=== PATIENT | female | born 1975 | race Two or more races ===

== ENCOUNTER 2024-08-25 11:36 | Emergency (ER) | payer MEDICAID, SELFPAY ==
[2024-08-25 11:41] VITALS: BP 129/81; PULSE 93; RESP 18; TEMP 36.8; O2SAT 98; BMI 27.4
--- NOTE | 2024-08-25 11:42 | ED_ITS ---
HPI - General Adult General Chief complaint: Wound/Laceration Stated complaint: abscess Time Seen by Provider: 08/25/24 13:10 Source: patient Mode of arrival: ambulatory Limitations: language barrier (Anguillan-speaking vaccines solutions specialist utilized) History of Present Illness ED Provider: Adelia Vieyra NP HPI narrative: Patient is a 49-year-old female who presents emergency department for evalua tion. She reports over the past week she has developed an increasingly yet painful and enlarging abscess to the left groin. She has had a history of similar in the past after shaving with ingrown hairs. She has previously required incision and drainage. she denies any fevers or chills. Denies genitourinary symptoms. No pelvic pain. Denies concern for sexually transmitted infections. Not a diabetic. No additional skin rashes or lesions Related Data Previous Rx's ?Medication ?Instructions ?Recorded cephalexin 500 mg capsule 500 mg PO QID #28 caps 08/25/24 doxycycline hyclate 100 mg capsule 100 mg PO BID #14 caps 08/25/24 Allergies Allergy/AdvReac Type Severity Reaction Status Date / Time Penicillins [PCN] Allergy Swelling Verified 08/25/24 11:43 Review of Systems Review of Systems: Yes all other systems are reviewed and are negative [facility] Past Medical History Attestation statement: The following information was validated with the patient. Source: old records reviewed Social History Social History Advance Directives: No Advance Directives Information Provided: Yes Do you have a plan to hurt others: No Plan Physical Exam ED Vital Signs: Vital Signs - 24 hr 08/25/24 11:41 08/25/24 13:06 Temperature 98.2 F 97.4 F Pulse Rate 93 79 Respiratory Rate 18 20 Blood Pressure 129/81 135/82 Pulse Oximetry 98 97 Oxygen Delivery Method Room Air Room Air BMI result Body Mass Index 27.4 Appearance: Alert.?Oriented to person, place and time. No acute distr ess.?Normal affect. Eyes: Pupils equal, round and reactive to light.? ENT: Pharynx normal.?? Neck: Normal inspection.? Neck supple.?? CVS: Heart sounds normal. Normal heart rate and rhythm.? Pulses normal.?? Respiratory: No respiratory distress.? Lung sounds clear to auscultation bilaterally?? Abdomen: Soft and non-tender. Normoactive bowel sounds. Skin: Skin warm and dry.? Normal skin color.? Visualized with men's designer ED nursing staff. Left groin with 5 cm X 3 cm area of erythema, induration along the borders, with central fluctuance concerning for abscess ? Extremities: No lower extremity edema.? Neuro: Moves all extremities spontaneously. Sensation intact bilaterally. Ambulates with normal steady gait. Course Course Course Narrative: This is a rapid medical exam performed by Rajan Chen NP: Additional HPI, ROS, PE not included below will be deferred to primary provider. 08/25/24 11:43 Leticia ent is a 49-year-old Anguillan speaking female presenting with complaint of abscess to left groin area x 1 week. Denies discharge/drainage, fevers. History of abscesses requiring I&D in the past. Area not visualized in triage due to privacy concerns. Medications Administered Discontinued Medications Generic Name Dose Route Start Last Admin Trade Name Freq PRN Reason Stop Dose Admin Lidocaine HCl 10 ml 08/25/24 13:38 08/25/24 13:42 Lidocaine Hcl 1 % Mpf 5 Ml Vial SUBCUT 08/25/24 13:39 10 ml ONCE ONE Administration Procedures Abscess I/D Site: other (GROIN) Side (if applicable): left Local Anesthetic: lidocaine 1% Amount of anesthesia used (mL): 7 Technique: needle aspiration and incised with blade Irrigation: Yes Packing used?: none Medical Decision Making Medical Decision Making MDM Narrative: Patient is a 49-year-old female who presents emergency department for evaluation of an abscess to the left groin. On examination there is mild surrounding cellulitis for which she will be treated with a course of antibiotics in addition to the incision and drainage as per procedural portion of this note. No systemic toxicity, and patient is well-appearing. Not consistent with necrotizing fasciitis, myositis, DVT, osteomyelitis. patient is now status post incision and drainage of abscess and tolerated the procedure well. No complications. No labs or imaging indicated at this time. Will discharge home with course of oral antibiotics and symptomatic treatment instructions. Discussed reasons to return to the emergency department, and follow-up with primary care provider. Patient agreeable with plan of care. Differential Diagnosis Differential Diagnoses: The differential diagnosis associated with the presentation includes (See narrative above) Independent Historian Clinical information obtained from an independent historian. History obtained from or confirmed by: Spouse External Record Review External record reviewed: Outpatient record Prescription Management I considered prescription management with: Pain Medication and Antibiotic Discharge Plan Discharge Clinical Impression: Abscess Patient Disposition: Home, Self-Care Instructions: Abscess (ED), Abscess Incision and Drainage (DC) Additional Instructions: Apply warm moist compresses to the area, it is beneficial if you can computer technology trainer a warm shower and let the water run over this area 3 times daily you may gently massage the area to express any additional drainage that may come out. As discussed, where an undergarment that does not allow friction in this area. If you are going to continue shaving or cutting the hair in this region, you certain that you were using a new razor each time, and consider using a moisturizing shave gel or an oil afterwards to prevent irritation to the follicles. I have sent prescription for antibiotic to your pharmacy, please complete the entire course as prescribed do not skip any doses or stop taking early even if you begin to feel better. You can take ibuprofen 200 mg, 3 tablets (600mg) every 6-8 hours as needed for pain, in addition to Tylenol 500 mg, 2 tablets (1,000mg) every 4-6 hours as needed for pain, but not to exceed 3 doses daily (3,000mg).? Prescriptions: New cephalexin 500 mg capsule 500 mg PO QID Qty: 28 0RF doxycycline hyclate 100 mg capsule 100 mg PO BID Qty: 14 0RF Referrals: Physician,Nonstaff [Primary Care Provider] - Print Language: Anguillan
[2024-08-25 13:06] VITALS: BP 135/82; PULSE 79; RESP 20; TEMP 36.3; O2SAT 97
--- OUTSIDE RECORDS SUMMARY | 2024-08-25 13:24 | XMS_ITS | Clinical Summary ---
Author Organization [facility] Address [address] [place] [address] Care Team Providers Care Forklift Material Handler Name Role Phone Sunil Wood MD Primary Care Provider [phone] Zeb Mazariegos MD Unavailable [phone] Mikael Dunham CMA Unavailable Unava [place] Unavailable Unavailabl e Allergies Active Allergy Reactions Criticality Noted Date Comments Penicillin G Anaphylaxis High 06/15/2022 Penicillins Rash Low 05/10/2022 Medications Medication Sig Dispensed Refills Start Date End Date Status SUMAtriptan (Imitrex) 25 MG tabletIndications: Migraine without aura and without status migrainosus, not intractable Take 1 tablet (25 mg total) by mouth 1 (one) time if needed for migraine. May repeat dose once in 2 hours if no relief. Do not exceed 2 doses in 24 hours. 9 tablet 2 3 Active hydrOXYzine pamoate (Vistaril) 50 MG capsuleIndications :Insomnia, unspecified type Take 1 capsule (50 mg total) by mouth at night if needed (sleep). 30 capsule 2 4 Active escitalopram (Lexapro) 20 MG tabletIndications: Anxiety and depression Take 1 tablet (20 mg total) by mouth 1 (one) time each day. 30 tablet 5 4 Active budesonide-formote rol (Symbicort) 160-4.5 MCG/ACT inhalerIndications :Mild persistent asthma with exacerbation Inhale 2 puffs in the morning and 2 puffs in the evening. Rinse mouth with water after use to reduce aftertaste and incidence of candidiasis. Do not swallow.. 1 g 11 4 Active Blood Glucose Monitoring Suppl deviceIndications: Prediabetes 3 (three) times a day. Monitor blood sugar 1-3 times a day 1 each 4 Active Blood Glucose Monitoring Suppl kitIndications:Pre diabetes 3 (three) times a day. Monitor blood sugar 1-3 times a day 100 each 11 4 Active gabapentin (Neurontin) 300 MG capsuleIndications :Bilateral carpal tunnel syndrome Take 1 capsule (300 mg total) by mouth in the morning and 1 capsule (300 mg total) at noon and 1 capsule (300 mg total) before bedtime. 90 capsule 2 4 Active mirtazapine (Remeron Roxana-Tab) 15 MG disintegrating tabletIndications: Poor appetite,Fatigue, unspecified type PLACE 1 TABLET (15 MG TOTAL) UNDER THE TONGUE EVERY NIGHT. 90 tablet 1 4 Active ergocalciferol (Vitamin D2) 1.25 MG (51398 UT) capsuleIndications :Vitamin D deficiency Take 1 capsule (50,000 Units total) by mouth 1 (one) time per week. 12 capsule 4 Active fluticasone (Flonase) 50 MCG/ACT nasal sprayIndications:P ostnasal drip,Acute cough Administer 1 spray into each nostril 1 (one) time each day. Shake gently. Before first use, prime pump. After use, clean tip and replace cap. 16 g 12 4 11/24/19 25 Active benzonatate (Tessalon) 200 MG capsuleIndications :Postnasal drip,Acute cough Take 1 capsule (200 mg total) by mouth 3 (three) times a day if needed for cough. Do not crush or chew. 30 capsule 1 4 Active Additional Information Patient not taking.Reported on 05/03/2024 methylPREDNISolone (Medrol Dosepak) 4 MG tablets Follow schedule on package instructions 21 tablet 4 Active Additional Information Patient not taking.Reported on 05/03/2024 albuterol (Ventolin HFA) 108 (90 Base) MCG/ACT inhalerIndications :Asthma, unspecified asthma severity, unspecified whether complicated, unspecified whether persistent INHALE 2 PUFFS EVERY 6 HOURS IF NEEDED FOR WHEEZING. 18 g 5 4 Active atorvastatin (Lipitor) 80 MG tabletIndications: Hyperlipidemia, unspecified hyperlipidemia type Take 1 tablet (80 mg total) by mouth every night. 90 tablet 3 4 05/03/20 25 Active Nebulizer System All-In-One miscIndications:Mi ld intermittent asthma with acute exacerbation Use with nebulizer solution 1 each 5 Active pantoprazole (Protonix) 40 MG EC tabletIndications: Epigastric pain TAKE 1 TABLET BY MOUTH EVERY DAY BEFORE BREAKFAST DO NOT CRUSH CHEW OR SPLIT 90 tablet 1 5 Active ipratropium-albute rol (Duo-Neb) 0.5-2.5 mg/3 mL nebulizer solutionIndication s:Mild intermittent asthma with acute exacerbation TAKE 3 ML BY NEBULIZATION EVERY 6 HOURS 360 mL 5 Active ipratropium-albute rol (Duo-Neb) 0.5-2.5 mg/3 mL nebulizer solutionIndication s:Mild intermittent asthma with acute exacerbation Take 3 mL by nebulization every 6 (six) hours. 360 mL 5 08/18/19 25 Discontinued Active Problems Problem Noted Date Diagnosed Date BMI 27.0-27.9,adult 03/12/2024 Intermittent palpitations 03/12/2024 Acute chest pain 08/17/2023 Chest pain 08/17/2023 Menorrhagia with regular cycle 08/22/2022 Depression 06/06/2022 Anxiety 06/06/2022 Acute posthemorrhagic anemia 06/06/2022 Duodenitis with bleeding 06/06/2022 care home (current) use of inhaled steroids 05/16 Other fpc (current) drug therapy 3 Asthma 06/06/2022 Gastritis, unspecified, with bleeding 06/06/2022 Urinary tract infection, site not specified 05/16 Perimenopausal 06/06/2022 Varicose veins of left lower extremity 3 Dyslipidemia 06/06/2022 Prediabetes 06/06/2022 Shortness of breath 03/20/2022 Unspecified asthma with (acute) exacerbation 10/2021 Cannabis use, unspecified, uncomplicated 022 Dyspnea, unspecified 01/06/2022 Acute pharyngitis, unspecified 12/07/2021 Epigastric pain 04/13/2021 Hematemesis 04/13/2021 Encounters Date Type Department Care Team Description 08/17/2024 Refill [facility] at [address] [place] [address] Sunil Wood MD Mild intermittent asthma with acute exacerbation 06/26/2024 Abstract [facility] at [address] [place] [address] Sunil Wood MD 06/25/2024 Abstract [facility] at [address] [place] [address] Sunil Wood MD 06/06/2024 Refill [facility] at [address] [place] [address] Sunil Wood MD Epigastric pain 05/31/2024 7:24 PM EST - 05/31/2024 8:20 PM EST Emergency [facility] [place] [address] [place] [address] Magnus Toscano MD Bilateral carpal tunnel syndrome (Primary Dx) Discharge Disposition: Home or Self Care 05/31/2024 Travel 05/27/2024 Telephone [facility] at [address] [place] [address] Shannon Brizuela CMA from Last 3 Months Immunizations Name Administration Dates Next Due Influenza, Mdck, Trivalent, Pf 03/11/2024 Influenza, injectable, MDCK, preservative free, quadrivalent 05/03/2023 Family History Medical History Relation Name Comments Lung cancer Mother uterus ca Mother's Sister Relation Name Status Comments Mother Mother's Sister Alive Social History Tobacco Use Types Packs/Day Years Used Date Smoking Tobacco: Every Day Cigarettes 0.3 33.3 Started: 1991 Passive Smoke Exposure: Never Smokeless Tobacco: Never Tobacco Cessation:Ready to Q uit: Not Asked; Counseling Given: Not Answered Alcohol Use Standard Drinks/Week Comments Never 0 (1 standard drink = 0.6 oz pur e alcohol) AUDIT-C Answer Date Recorded Q1: How often do you have a drink containing alc ohol? 2-4 times a month 02/03/2023 Q2: How many drinks containi ng alcohol do you have on a typical day when you are drinking? 1 or 2 02/03/2023 Q3: How often do you have si x or more drinks on one occasion? Never 02/03/2023 PHQ-2 Answer Date Recorded Patient Health Questionnaire-2 Score 0 11/24/2023 [facility] Housing Answer Date Recorded Living Situation Not on file 12/28/2022 Housing Problems Not on file 12/28/2022 [facility] Safety Answer Date Recorded How often does anyone, jeovany santos family and friends, threaten you with harm? 1 08/17/2023 How often does anyone, jeovany santos family and friends, insult or talk down to you? 1 08/17/2023 How often does anyone, jeovany santos family and friends, physically hurt you? 1 08/17/2023 How often does anyone, jeovany santos family and friends, scream or curse at you? 1 08/17/2023 Sex and Gender Information Value Date Recorded Sex Assigned at Not on file Gender Identity Not on file Sexual Orientation Not on file Last Filed Vital Signs Vital Sign Reading Time Taken Comments Blood Pressure 114/84 05/31/2024 7:38 PM EST Pulse 82 05/31/2024 7:38 PM EST Temperature 37 ??C (98.6 ??F) 05/31/2024 7:38 PM EST Respiratory Rate 16 05/31/2024 7:38 PM EST Oxygen Saturation 100% 05/31/2024 7:38 PM EST Inhaled Oxygen Concentration - - Weight 70 kg (154 lb 5.2 oz) 05/31/2024 7:38 PM EST Height 160 cm (5' 2.99 ) 05/31/2024 7:38 PM EST Body Mass Index 27.34 05/31/2024 7:38 PM EST Plan of Treatment Health Maintenance Due Date Last Done Comments CT Colonography 1975 Cologuard 1975 Colonoscopy 1975 Colorectal Cancer Screening 1975 FIT 1975 FOBT 1975 HIV Screening 1975 Sigmoidoscopy 1975 MMR Vaccines (1 of 1 - Standard series) 02/28/1976 Annual Physical 08/28/1977 COVID-19 Vaccine (#1) 02/28/1980 DTaP/Tdap/Td Vaccines (1 - Tdap) 1994 Hepatitis B Vaccines (1 of 3 - 19+ 3-dose series) 1994 Pneumococcal: Pediatrics (0 to 5 Yrs) and At-Risk Patients (6 to 49 Years) (1 of 2 - PCV) 1994 Zoster Vaccines (1 of 2) 1994 Mammogram 2015 Diabetes Screening 04/23/2025 04/23/2024, 1 06/24/2023, 03/07/2024, Additional history exists Diabetes: Hemoglobin A1C 04/23/2025 024, 11/13/2023, 09/11/2023, Additional history exists Pap Smear 08/22/2025 08/22/2022 Cervical Cancer Screening 08/23/2027 HPV/Cotest 08/23/2027 08/22/2022 Lipid Panel 04/23/2029 04/23/2024, 07/0 05/2023, 09/11/2023, Additional history exists Respiratory Syncytial Virus (RSV) 60 years and older and/or patients (1 - 1-dose 75+ series) 2050 Influenza Vaccine Completed 03/11/2024, 05/03/2023 HPV Vaccines Aged Out No longer eligi ble based on patient's age to complete this topic Hepatitis A Vaccines Aged Out No long er eligible based on patient's age to complete this topic Meningococcal B Vaccine Aged Out No l onger eligible based on patient's age to complete this topic Meningococcal Vaccine Aged Out No mike garett eligible based on patient's age to complete this topic Respiratory Syncytial Virus (RSV) <20 months Aged Out No longer eligible based on patient's age to complete this topic Procedures Procedure Name Priority Date/Time Associated Diagnosis Comments COMPREHENSIVE METABOLIC PANEL Routine 04/23/2024 8:39 AM EST HEMOGLOBIN A1C Routine 04/23/2024 8:39 AM EST LIPID PANEL Routine 04/23/2024 8:39 AM EST THINPREP TIS PAP, HPV MRNA E6/E7 RFX HPC 16,18/45, CT/NG Routine 08/22/2022 10:22 AM EDT Encounter for well woman exam with abnormal findings from Last 3 Months or Most Recently Relevant to Health Maintenance Results * (ABNORMAL) Hemoglobin A1C (04/23/2024 8:39 AM EST) Hemoglobin A1C 6.1(H) 4.8 - 5.6 % [facility] (RESULTS) ([facility]) Comment: ? Prediabetes: 5.7 - 6.4 ? Diabetes: >6.4 ? Glycemic control for adults with diabetes: <7.0 04/23/2024 8:39 AM EST 04/23/2024 Narrative [facility] - 04/26/2024 1:06 AM EST Performed at: ??01 - [facility] [address] ??[id number] Dog Control Officer: Harry Zuñiga MD, Phone: ??[phone] Sunil Wood MD LAB BLOOD ORDERABLES [facility] ([facility]) ([facility]) * (ABNORMAL) Lipid Panel (04/23/2024 8:39 AM EST) Cholesterol, Total 231(H) 100 - 199 mg/dL [facility] (RESULTS) ([facility]) Triglycerides 157(H) 0 - 149 mg/dL [facility] (RESULTS) ([facility]) HDL Cholesterol 53 >39 mg/dL [facility] (RESULTS) ([facility]) VLDL, Calculated 28 5 - 40 mg/dL [facility] (RESULTS) ([facility]) LDL Cholesterol, Calc 150(H) 0 - 99 mg/dL [facility] (RESULTS) ([facility]) 04/23/2024 8:39 AM EST 04/23/2024 Narrative [facility] - 04/26/2024 1:06 AM EST Performed at: ??01 - [facility] [address] ??[id number] Dog Control Officer: Harry Zuñiga MD, Phone: ??[phone] Sunil Wood MD LAB BLOOD ORDERABLES [facility] (RESULTS) ([facility]) * (ABNORMAL) Comprehensive Metabolic Panel (CMP) (04/23/2024 8:39 AM EST) Glucose 110(H) 70 - 99 mg/dL [facility] (RESULTS) ([facility]) BUN 11 6 - 24 mg/dL [facility] (RESULTS) ([facility]) Creatinine 0.71 0.57 - 1.00 mg/dL [facility] (RESULTS) ([facility]) eGFR 104 >59 mL/min/1.7 3 [facility] (RESULTS) ([facility]) BUN/Creatinine Ratio 15 9 - 23 [facility] (RESULTS) ([facility]) Sodium 140 134 - 144 mmol/L [facility] (RESULTS) ([facility]) Potassium 4.5 3.5 - 5.2 mmol/L [facility] (RESULTS) ([facility]) Chloride 105 96 - 106 mmol/L [facility] (RESULTS) ([facility]) Carbon Dioxide 23 20 - 29 mmol/L [facility] (RESULTS) ([facility]) Calcium 9.2 8.7 - 10.2 mg/dL [facility] (RESULTS) ([facility]) Protein, Total 7.1 6.0 - 8.5 g/dL [facility] (RESULTS) ([facility]) Albumin 4.1 3.9 - 4.9 g/dL [facility] (RESULTS) ([facility]) Globulin 3.0 1.5 - 4.5 g/dL [facility] (RESULTS) ([facility]) Bilirubin, Total 0.2 0.0 - 1.2 mg/dL [facility] (RESULTS) ([facility]) Alkaline Phosphatase 83 44 - 121 IU/L [facility] (RESULTS) ([facility]) AST 15 0 - 40 IU/L [facility] (RESULTS) ([facility]) ALT 10 0 - 32 IU/L [facility] (RESULTS) ([facility]) 04/23/2024 8:39 AM EST 04/23/2024 Narrative [facility] - 04/26/2024 1:06 AM EST Performed at: ??01 - [facility] [address] ??[id number] Dog Control Officer: Harry Zuñiga MD, Phone: ??[phone] Sunil Wood MD LAB BLOOD ORDERABLES [facility] (RESULTS) ([facility]) * ThinPrep TIS PAP, HPB mRNA E6/E7 rfx HPV 16,18/45, CT/NG (08/22/2022 10:22 AM EDT) Clinical Information [facility] Comment:None given LMP [facility] Comment:None given Previous PAP [facility] Comment:None given Previous Biopsy [facility] Comment:None given Source [facility] Comment:Vagina, Cervix, Endo cervix Statement of Adequacy [facility] Comment: Satisfactory for evaluation. Endocervical/transformation zone component present. Age and/or menstrual status not provided Interpretation/Resu lt: [facility] Comment:Negative for intraep ithelial lesion or malignancy. Comment: [facility] Comment: This Pap test has been evaluated with computer assisted technology. Vessel Manager [facility] Comment: DULCE RENTERIA(ASCP) CT screening location: [place] [address] Comment [facility] Comment: EXPLANATORY NOTE: The Pap is a screening test for cervical cancer. It is not a diagnostic test and is subject to false negative and false positive results. It is most reliable when a satisfactory sample, regularly obtained, is submitted with relevant clinical findings and history, and when the Pap result is evaluated along with historic and current clinical information. HPV mRNA E6/E7 Not Detected Not Detected [facility] Comment: Methodology: Asbestos Brake Lining Finisher Helper-Mediated Amplification This assay detects E6/E7 viral messenger RNA (mRNA) from 14 high-risk HPV types (16,18,31,33,35,39,45,51,52,56,58,59,66,68). Cervical sources are required for HPV testing. If a vaginal source from a patient who has had a total hysterectomy with removal of cervix was submitted, please contact the testing laboratory for alternative testing options. For additional information, please refer to http://Shootitlive.TyraTech/faq/ZFL982k7 (This link if provided for information/ educational purposes only.) Chlamydia Trachomatis NOT DETECTED NOT DETECTED [facility] N gonorrhoeae rNA TMA, Urogenital NOT DETECTED NOT DETECTED [facility] Comment [facility] Comment: The analytical performance characteristics of this assay, when used to test SurePath(TM) specimens have been determined by [facility]. The modifications have not been cleared or approved by the FDA. This assay has been validated pursuant to the CLIA regulations and is used for clinical purposes. For additional information, please refer to https://Shootitlive.TyraTech/faq/OQJ122 (This link is being provided for information/ educational purposes only.) Liquid based cytology Cervix uteri structure / Unknown 08/22/2022 10:22 AM EDT 08/23/2022 6:09 AM EDT No Rao BURR MACHINE OPERATOR LAB CYTOLOGY O RDERABLES [facility] [address] [place] [address] from Last 3 Months or Most Recently Relevant to Health Maintenance Advance Directives * Full Code (Latest Code Status on File) Date Activated Date Inactivated Comments 08/17/2023 10:04 PM 08/18/2023 10:15 PM Care Teams Forklift Material Handler Relationship Specialty Start Date End Date Sunil Wood MD PCP - General Family Medicine 04/11/22 Zeb Mazariegos MD Surgeon Orthopaedic Surgery 02/03/23 Mikael Dunham [facility] 02/03/23 Hetal Ho Tearoom Host/Hostess Family Medicine 06/05/24
--- OUTSIDE RECORDS SUMMARY | 2024-08-25 13:24 | XMS_ITS | Patient Health Record ---
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 F.U LEV Insufficiency DUS Bilateral Reviewed date:10/26/2023 01:36:46 PM Interpretation: Performing Lab: Notes/Report: Imaging Center - [facility] .Post Op LEV Patency DUS Rig ht Reviewed date:11/15/2023 10:32:43 AM Interpretation: Performing Lab: Notes/Report: [facility] - [facility] REASON FOR REFERRAL Reason No auth req [place] scan s [id number] Referred Organization [facility] Referred Provider Seymour Edward Referred Address [address] [place] [id number] Referred Provider Specialty Vascular and Interventional Radiology General Notes Laura Alston 09/12 04:04:22 PM >No auth req for scans on tiara--scanned confirmation to chart, Laura Alston 11/17/2023 03:10:51 PM >[place] [id number]--[id number] confirmation to chart Referral Priority Routine Reason Approved Referred Organization [facility] Referred Provider Seymour Edward Referred Address [address] [place], [id number] Referred Provider Specialty Vascular and Interventional Radiology General Notes Laura Alston 09/13 04:23:39 PM >confirmed same pcp as previous--sent over referral request, Laura Alston 10/17/2023 10:12:23 AM >called pcp spoke with Yajaira confirmed referral request was received and is being worked., Laura Alston 10/18/2023 03:13:51 PM >received approved referral--scanned to chart Clinical Notes Dr. Wood, [facility] , [place] , Referral Priority Routine Reason Approved - RFA RT GS V, RT SSV 85543 x2 LT GSV/SSV DO NOT MEET - PHYSICIAN INFORMED Diagnosis 1 Varicose veins of bi lateral lower extremities with other complications (I83.893) Diagnosis 2 Varicose veins of le ft lower extremity with complications (I83.892) Diagnosis 3 Varicose veins of ri ght lower extremity with other complications (I83.891) Referral Organization [facility] Referring Provider First Name Seymour Referring Provider Last Name Wagner Referring Provider Speciality Vascular a nd Interventional Radiology Referred Provider Seymour Edward Referred Provider Specialty Vascular and Interventional Radiology Procedure 1 ENDOVENOUS RF, 1ST V EIN (25795) General Notes Parish Franco 2023 02:44:39 PM > [facility] DOM[facility] submitted via Availity with clinicals. Pending - RFA RT GSV, RT SSV 35597 x2. , LT GSV/SSV DO NOT MEET - PHYSICIAN INFORMED, Parish Franco 10/31/2023 08:12:48 AM >Approved - RFA RT GSV, RT SSV 34741 x2 EFF 10/30/23 - 11/28/23 Auth letter scanned. Sent to [facility] to schedule sooner. Case #[id number] Referral Priority Routine Reason [place] [address] x1 Patient needs to sign The [employer] appeal consent form sent to her . Diagnosis 1 Varicose veins of bi lateral lower extremities with other complications (I83.893) Diagnosis 2 Varicose veins of le ft lower extremity with other complications (I83.892) Diagnosis 3 Varicose veins of ri ght lower extremity with other complications (I83.891) Referral Organization [facility] Referring Provider First Name Seymour Referring Provider Last Name Wagner Referring Provider Speciality Vascular a nd Interventional Radiology Referred Provider Seymour Edward Referred Provider Specialty Vascular and Interventional Radiology Procedure 1 Injection of scleros ant, single incompetent vein (08357) General Notes Parish Franco 2023 10:31:27 AM > [facility] DOMITILA submitted via availity with clinicals. [place] [address] Goran sumner Kay 11/29/2023 11:19:32 AM > Per [facility] thru Availity portal Cpt 54683 UGFS Lt LE was not certified Auth# [id number] .. spk w/ Nurse reviewer @ [phone] Summer W. advised denied 11/18/23, they allow 2 business days for a Peer to Peer. advised send ATTN: [employer] Appeals Fax appeal to [phone] or send in appeal in writing ltr to [facility] [address] [address] [place] [address]. The original request had the scan dated 10/26/23 & clinicals were dated 10/27/23. sending to [employer] . scanned denial into chart, Tiera Kimbrough 12/01/2023 01:49:01 PM >Appeal request submitted and scanned to the chart., Tiera Kimbrough 12/04/2023 12:43:54 PM >Case sent to [facility] , , Reason: Other, Subject: Karina Carlos, Description: The appeal request is pending and will take 30 days. Please reschedule the patient. Thank you, Tiera Kimbrough 01/03/2024 04:05:52 PM >Phone insurance with Abhishek Tavares reference for the call [phone] the appeal was dismissed because the patient did not respond to the consent form that was sent to her. Appeal request submitted again. , Case sent to [facility] , , Reason: Auth Denied- Under dispute, Subject: Karina Carlos, Description: Appeal pending, the previous appeal was dismissed because the patient never responded to the appeal consent that was sent to her from the insurance. Another appeal request will be submitted and the patient will have to move out for another 30 days. Thank you, Tiera Kimbrough 01/09/2024 10:28:04 AM >I called [facility] and spoke with Misty Harding reference for the call [phone], per [place] in the appeals department a consent form was mailed to the provider and patient on 01/05/2024. Patient sign the form in order to have the appeal processed. If not, the appeal request will be denied., Enma Zimmer 01/25/2024 09:01:05 AM > [facility] Appeal ltr dated 01/04/24 , states rcvd appeal request 01/03/24, advised will mail response with our ruling 30 days from date of ltr 01/03/24. scanned copy to chart., Enma Zimmer 02/06/2024 01:43:10 PM >Snt a case to [facility] per CV cancelling any services for pt, Appeal will not be addressed until Patient& Dr medina an appeal form sent to them by [employer]. Clinical Notes Enma Zimmer 01/14 01:51:42 PM > Thank you for submitting your reschedule request via web form. , , Reason: Auth Denied- Upheld, Subject: Karina Carlos, Description: Please advise patient that no appts can be kept, appeal Pending because Patient didn't sign Appeal forms sent to her by her insurance, [employer] [facility]. Thank You Referral Priority Routine MEDICATIONS Medication SIG (Take, Route, Frequency, Duration) Notes Start Date End Date Status Ventolin HFA 108 (90 Base) MCG/ACT Inhalation for 25 Unknown Loratadine 10 MG TAKE 1 TABLET BY MANUEL 1 TIME EACH DAY. Oral for 30 Unknown Pantoprazole Sodium 40 MG Oral for 30 Unknown Escitalopram Oxalate 20 MG Oral for 30 Unknown hydrOXYzine Pamoate 50 MG Oral for 30 Unknown Albuterol Sulfate 1.25 MG/3ML Inhalation for 5 Unknown Omeprazole 40 MG Oral for 30 U nknown predniSONE 20 MG TAKE 2 TABLETS BY MO [facility] EVERY DAY FOR 4 DAYS Oral for 4 Unknown SOCIAL HISTORY Tobacco Use: Social History Observation Description Date Details (start date - stop date) Never Smoker NA - NA Sex Assigned At : Social History Observation Description Sex Assigned At Unknown Tobacco Use/Smoking Question Answer Notes Are you a nonsmoker Alcohol Screen (Audit-C) Question Answer Notes Did you have a drink contain ing alcohol in the past year? Yes How often did you have a dri nk containing alcohol in the past year? Monthly or less (1 point) How many drinks did you have on a typical day when you were drinking in the past year? 3 or 4 drinks (1 point) How often did you have 6 or more drinks on one occasion in the past year? Never (0 point) Points 2 Interpretation Negative PROBLEMS Problem Type ICD Code Onset Dates Problem Status W/U Status Risk SNOMED Code Notes Problem Varicose veins of right lower extremity with other complications (I83.891) Active confirmed Varicose veins of lower extremity (68596814) Problem Varicose veins of bilateral lower extremities with other complications (I83.893) Active confirmed [id number] Venous DUS BLE demonstrates reflux. No DVT, Order RFA for treatment of refluxing axial veins. Order Scerlotherapy for remnant axial veins and tributary veins. The patient has signs and symptoms of venous insufficiency affecting activities of daily living. Patient continues to remain symptomatic despite conservative therapy of at least 6 weeks such as: wearing 20-30 mmHg compression stockings, leg elevation, avoiding prolonged immobility, exercise program of calf muscle pumping activity, weight reduction and management, and taking analgesics and/or NSAIDS. Therefore, will proceed with treatment of incompetent vein(s). Problem Varicose veins of left lower extremity with other complications (I83.892) Active confirmed Varicose veins of left lower limb ([id number] 5257419) Problem Varicose veins of left lower extremity with complications (I83.892) Active confirmed Varicose veins of lower extremity (24637098) VITAL SIGNS Heart Rate 88 /min 11/15/2023 Blood pressure diastolic 74 mm Hg 11/15/2023 Height 5 ft 2 in in 11/15/2023 Blood pressure systolic 120 mm Hg 11/15/2023 Weight 148 lbs 10/27/2023 BMI 27.07 kg/m2 10/27/2023 PROCEDURES Procedure Date Ordered Date Performed Result Body Sit e .RFA Right GSV 11/09/2023 N/A .RFA Right SSV 11/15/2023 N/A Encounters Encounter Location Date Provider Diagnosis [place] [facility] [address] [facility] [place] [id number] 09/28/2023 Seymour [place] [address] [place] , [place] [id number] 10/10/2023 Brooke Winn [place] [address] [place] , [place] [id number] 10/19/2023 Seymour Brown [place] [address] [place] , [place] [id number] 10/20/2023 Brooke Kymberly Varicose veins of bilateral lower extremities with other complications I83.893 ; Varicose veins of left lower extremity with complications I83.892 and Varicose veins of right lower extremity with other complications I83.891 [place] [address] [place] , [place] [id number] 11/15/2023 Seymour Brown [place] [address] [place] , [place] [id number] 11/22/2023 Seymour Brown [place] [address] [place] , [place] [id number] 01/08/2024 Brooke Kymberly [place] [address] [place] , [place] [id number] 02/08/2024 Seymour Brown [place] [address] [place] , [place] [id number] 09/04/2023 Brooke Winn Varicose veins of bilateral lower extremities with other complications I83.893 ; Varicose veins of left lower extremity with complications I83.892 and Varicose veins of right lower extremity with other complications I83.891 [place] [address] [place] , [place] [id number] 10/26/2023 Seymour Brown Varicose veins of bilateral lower extremities with other complications I83.893 [place] [address] [place] , [place] [id number] 10/27/2023 Brooke Winn Varicose veins of bilateral lower extremities with other complications I83.893 [place] [address] [place] , [place] [id number] 11/09/2023 Seymour Brown Varicose veins of bilateral lower extremities with other complications I83.893 ; Varicose veins of left lower extremity with other complications I83.892 and Varicose veins of right lower extremity with other complications I83.891 [place] [address] [place] , [place] [id number] 11/15/2023 Seymour Brown Varicose veins of bilateral lower extremities with other complications I83.893 ; Varicose veins of left lower extremity with complications I83.892 and Varicose veins of right lower extremity with other complications I83.891 [place] [address] [place] , [place] [id number] 11/24/2023 Seymour Brown Varicose veins of bilateral lower extremities with other complications I83.893 ; Varicose veins of left lower extremity with other complications I83.892 and Varicose veins of right lower extremity with other complications I83.891 ASSESSMENTS Encounter Date Diagnosis Assessment Notes Treatment Notes Treatment Clinical Notes Section Notes 10/20/2023 Varicose veins of bilateral lower extremities with other complications (ICD-10 - I83.893) 10/20/2023 Varicose veins of left lower extremity with complications (ICD-10 - I83.892) 10/26/2023 Varicose veins of bilateral lower extremities with other complications (ICD-10 - I83.893) 10/27/2023 Varicose veins of bilateral lower extremities with other complications (ICD-10 - I83.893) Venous DUS BLE demonstrates reflux. No DVT, Order RFA for treatment of refluxing axial veins. Order Scerlotherapy for remnant axial veins and tributary veins. The patient has signs and symptoms of venous insufficiency affecting activities of daily living. Patient continues to remain symptomatic despite conservative therapy of at least 6 weeks such as: wearing 20-30 mmHg compression stockings, leg elevation, avoiding prolonged immobility, exercise program of calf muscle pumping activity, weight reduction and management, and taking analgesics and/or NSAIDS. Therefore, will proceed with treatment of incompetent vein(s). VENOUS PATIENT EDUCATION: The planned procedures, expected benefits, associated risks, and possible complications such as infection, bleeding, scarring, allergic reactions to medications including cyanoacrylate, nerve injury (paresthesia), clot in the vein (DVT- Deep Venous Thrombosis), thermal injury (burn), skin ulceration, pigmentation on the skin over the vein area have been discussed in detail with the patient. Questions were encouraged and answered to stated satisfaction of the patient. Additional instructions were given regarding the planned procedure(s). 11/09/2023 Varicose veins of bilateral lower extremities with other complications (ICD-10 - I83.893) 09/04/2023 Varicose veins of bilateral lower extremities with other complications (ICD-10 - I83.893) Continue conservative therapy - Gradient compression stockings - OTC - NSAIDS/Acetamin ophen - Ice/cold compress - Exercise (calf and ankle ROM) - Leg elevation - Avoid prolonged immobility Continue conservative management. Order Venous DUS BLE. 09/04/2023 Varicose veins of left lower extremity with complications (ICD-10 - I83.892) Continue conservative management. Order Venous DUS BLE. 11/09/2023 Varicose veins of left lower extremity with other complications (ICD-10 - I83.892) 11/15/2023 Varicose veins of bilateral lower extremities with other complications (ICD-10 - I83.893) Right GSV is successfully ablated. Ultrasound done today shows no DVT in bilateral lower extremities. 11/15/2023 Varicose veins of left lower extremity with complications (ICD-10 - I83.892) Right GSV is successfully ablated. Ultrasound done today shows no DVT in bilateral lower extremities. 11/24/2023 Varicose veins of bilateral lower extremities with other complications (ICD-10 - I83.893) 11/24/2023 Varicose veins of left lower extremity with other complications (ICD-10 - I83.892) 11/24/2023 Varicose veins of right lower extremity with other complications (ICD-10 - I83.891) 11/15/2023 Varicose veins of right lower extremity with other complications (ICD-10 - I83.891) Right GSV is successfully ablated. Ultrasound done today shows no DVT in bilateral lower extremities. 10/20/2023 Varicose veins of right lower extremity with other complications (ICD-10 - I83.891) 11/09/2023 Varicose veins of right lower extremity with other complications (ICD-10 - I83.891) 09/04/2023 Varicose veins of right lower extremity with other complications (ICD-10 - I83.891) Continue conservative management. Order Venous DUS BLE. 10/20/2023 Other XX minutes is the total time I spent in care and coordination of the medical needs and necessities of this patient, including detailed discussions of ongoing plan of care, excluding all separately billable procedures. 09/04/2023 Other 15 minutes is the total time I spent in care and coordination of the medical needs and necessities of this patient, including detailed discussions of ongoing plan of care, excluding all separately billable procedures. I am following the physicians plan of care. A supervising physician is in the office suite today and immediately available to answer questions and render care if required. Continue conservative management. Order Venous DUS BLE. 10/26/2023 Other A duplex ultrasound was ordered, performed and interpreted. Refer to ultrasound report for further details. 10/27/2023 Other I am following the physicians plan of care. A supervising physician is in the office suite today and immediately available to answer questions and render care if required. 15 minutes is the total time I spent in care and coordination of the medical needs and necessities of this patient, including detailed discussions of ongoing plan of care, excluding all separately billable procedures. 11/15/2023 Other 12 minutes is the total time I spent in care and coordination of the medical needs and necessities of this patient, including detailed discussions of ongoing plan of care, excluding all separately billable procedures. A duplex ultrasound was ordered and performed. I interpreted, reviewed, and discussed the results with the honing machine try out setter and patient. Right GSV is successfully ablated. Ultrasound done today shows no DVT in bilateral lower extremities. 11/24/2023 Other A duplex ultrasound was ordered, performed and interpreted. Refer to ultrasound report for further details. PLAN OF TREATMENT Pending Test Test Name Order Date .RFA Left GSV 07/29/2022 .Post Ablation LEV Insufficiency DUS Jose ateral 08/29/2022 .Varithena Left AASV (71559) 09/09/2022 .RFA Right GSV 11/09/2023 .RFA Right SSV 11/15/2023 .LEV Patency DUS Right 11/24/2023 Future Test Test Name Order Date .UGFS left lower extremity (medial) 10/13 .Auth DUS Left 10/30/2023 .Post Ablation LEV Insufficiency DUS Rig ht 11/15/2023 Insurance Providers Payer Name Payer Address Payer Phone Subscriber Number Group Number Insured Name Patient Relationship to Insured Coverage Start Date Coverage End Date [facility] [address] [address] [place] [address] [id number] [id number] Karina Carlos Self - patient is the insured 3 MEDICAL (GENERAL) HISTORY Medical History History ICD Code Arthritis diabetes high cholesterol asthma Surgical History Surgery Date(Month/Year) hernia repair
--- OUTSIDE RECORDS SUMMARY | 2024-08-25 13:24 | XMS_ITS ---
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 Oral for 30 Unknown Pantoprazole Sodium 40 MG Oral for 30 Unknown Escitalopram Oxalate 20 MG Oral for 30 Unknown hydrOXYzine Pamoate 50 MG Oral for 30 Unknown Albuterol Sulfate 1.25 MG/3ML Inhalation for 5 Unknown Omeprazole 40 MG Oral for 30 U nknown predniSONE 20 MG TAKE 2 TABLETS BY MO UTH EVERY DAY FOR 4 DAYS Oral for 4 Unknown Encounters Encounter Location Date Provider Diagnosis [place] [facility] [address] [place], [place] [id number] 11/24/2023 Seymour Edward Varicose veins of bi lateral lower extremities with other complications I83.893 ; Varicose veins of left lower extremity with other complications I83.892 and Varicose veins of right lower extremity with other complications I83.891 ASSESSMENTS Encounter Date Diagnosis Assessment Notes Treatment Notes Treatment Clinical Notes Section Notes 11/24/2023 Varicose veins of bilateral lower extremities with other complications (ICD-10 - I83.893) 11/24/2023 Varicose veins of left lower extremity with other complications (ICD-10 - I83.892) 11/24/2023 Varicose veins of right lower extremity with other complications (ICD-10 - I83.891) 11/24/2023 Other A duplex ultrasound was ordered, performed and interpreted. Refer to ultrasound report for further details. PLAN OF TREATMENT Treatment Notes Assessment Notes Other A duplex ultrasound was ordered, performed and interpreted. Refer to ultrasound report for further details. Pending Test Test Name Order Date .LEV Patency DUS Right 11/24/2023 Progress Notes * Karina REYNOLDS MDOB:1975 ( 48 yo F)Acc No.[id number]:11/24/2023 Patient:??Karina REYNOLDS M Provider:??Seymour Edward MD :1975?Age:48 Y?Sex:Fe male Date:11/24/2023 Address:[address] [place] [address], [id number] Pcp:Sunil Wood MD Subjective: * Chief Complaints: * ?*SCAN ONLY* U/S - F/U Right SSV * Medical History:?? * Surgical History:?? * Hospitalization/Major Diagno stic Procedure:?? * Medications:??UnknownEscital opram Oxalate 20 MG Tablet Oral hydrOXYzine Pamoate 50 MG Capsule Oral Pantoprazole Sodium 40 MG Tablet Delayed Release Oral Ventolin HFA 108 (90 Base) MCG/ACT Aerosol Solution Inhalation Loratadine 10 MG Tablet TAKE 1 TABLET BY MOUTH 1 TIME EACH DAY. Oral Omeprazole 40 MG Capsule Delayed Release Oral predniSONE 20 MG Tablet TAKE 2 TABLETS BY MOUTH EVERY DAY FOR 4 DAYS Oral Albuterol Sulfate 1.25 MG/3ML Nebulization Solution Inhalation Unknown Escitalopram Oxalate 20 MG Tablet Oral Unknown hydrOXYzine Pamoate 50 MG Capsule Oral Unknown Pantoprazole Sodium 40 MG Tablet Delayed Release Oral Unknown Ventolin HFA 108 (90 Base) MCG/ACT Aerosol Solution Inhalation Unknown Loratadine 10 MG Tablet TAKE 1 TABLET BY MOUTH 1 TIME EACH DAY. Oral Unknown Omeprazole 40 MG Capsule Delayed Release Oral Unknown predniSONE 20 MG Tablet TAKE 2 TABLETS BY MOUTH EVERY DAY FOR 4 DAYS Oral Unknown Albuterol Sulfate 1.25 MG/3ML Nebulization Solution Inhalation Objective: Assessment: * Assessment: 1.??Varicose veins of bilate ral lower extremities with other complications - I83.893 (Primary)??2.??Varicose veins of left lower extremity with other complications - I83.892??3.??Varicose veins of right lower extremity with other complications - I83.891?? Plan: * Treatment: 2.??Others?? Notes: A duplex ultrasound was ordered, performed and interpreted. Refer to ultrasound report for further details.? * Procedure Codes:??38170 ULTR ASOUND UNILATERAL * * Sign off status: Completed true * Provider:??Seymour Edward MD Date:?? 024
--- OUTSIDE RECORDS SUMMARY | 2024-08-25 13:24 | XMS_ITS | Encounter Summary ---
Author Organization [facility] Address [address] [place] [address] Care Team Providers Care Seismic Computer Name Role Phone Sunil Wood MD Primary Care Provider [phone] Zeb Mazariegos MD Unavailable [phone] Mikael Dunham CMA Unavailable [place]ava [place] Unavailable Unavailabl e Source Comments Please be aware that You and/or your organization are solely responsible for the use, security, privacy, and any decisions made with any information you receive from [employer] Reason for Visit * Reason Comments Med Refill Encounter Details Date Type Department Care Team (Late st Contact Info) Description 11/09/2022 Refill [facility] Multispecialty at [place] [address] [facility] [address] [place] [address] Sunil [place] [id number] [place] [address] [address] [place] [address] Insomnia, unspecified type Social History Tobacco Use Types Packs/Day Years Used Date Smoking Tobacco: Every Day Cigarettes 0.3 30 Alcohol Use Standard Drinks/Week Comments Never 0 (1 standard drink = 0.6 oz pur e alcohol) PHQ-2 Answer Date Recorded Patient Health Questionnaire-2 Score 2 05/20/2022 Sex and Gender Information Value Date Recorded Sex Assigned at Not on file Gender Identity Not on file Sexual Orientation Not on file documented as of this encounter Miscellaneous Notes * Telephone Encounter - Sunil Wood MD - 11/09/2022 9:22 AM EDT Approving, but needs appt for additional refills. documented in this encounter Plan of Treatment Not on file documented as of this encounter Visit Diagnoses Diagnosis Insomnia, unspecified type documented in this encounter Additional Health Concerns Infection Onset Date Last Indicated Resolved Time COVID-19 Rule-Out 08/17/2023 08/17/2023 08/17/2023 5:40 PM EDT RSV Rule-Out 08/17/2023 08/17/2023 08/17/2023 5:40 PM EDT Respiratory Rule-Out 08/17/2023 08/17/2023 024 11:51 PM EDT Rhinovirus/Enterovirus 08/17/2023 08/17/202309/13 5:24 AM EDT Assessment Noted Time PHQ-9 Depression Total Score: 5 05/20/19 23 7:12 PM EST documented as of this encounter Care Teams Seismic Computer Relationship Specialty Start Date End Date Sunil Wood MD PCP - General Family Medicine 04/11/22 Zeb Mazariegos MD Surgeon Orthopaedic Surgery 02/03/23 Mikael Dunham [facility] 02/03/23 Hetal Ho Mobile Home Technician Family Medicine 06/05/24 documented as of this encounter
--- OUTSIDE RECORDS SUMMARY | 2024-08-25 13:24 | XMS_ITS ---
Author Organization [facility] Address [address] [facility] [address] [place], [place] [id number] Care Team Providers Care Safety Assistant Name Role Phone Nina RAPP, Sunil Primary Care Provider Seymour Herman Unavailable [phone] REASON FOR VISIT Ultrasound Guided Sclerotherapy left lower extremity (medial) Encounters Encounter Location Date Provider Diagnosis [place] [address] [place], [place] [id number] 02/08/2024 Natan Edward PLAN OF TREATMENT No Information Progress Notes * Karina REYNOLDS MDOB:1975 ( 49 yo F)Acc No.[id number]:02/08/2024 Patient:??Karina REYNOLDS Provider:??Seymour Edward MD :1975?Age:48 Y?Sex:Fe male Date:02/08/2024 Address:[facility] SUNIL MD, [facility], [id number] Pcp:Sunil Wood MD Subjective: * Chief Complaints: * ?1. Ultrasound Guided S clerotherapy left lower extremity (medial). * Medical History:?? Objective: Assessment: Plan: * Treatment: * * Sign off status: Pending * Provider:??Seymour Edwadr MD Date:?? 024
--- OUTSIDE RECORDS SUMMARY | 2024-08-25 13:25 | XMS_ITS ---
Author Organization [facility] Address [address] [facility] [address] [place], [place] [id number] Care Team Providers Care Odd Piece Checker Name Role Phone Sunil Wood MD Primary Care Provider Brooke Fiedls Unavailable [phone] REASON FOR VISIT Ultrasound Guided Sclerotherapy left lower extremity (medial) Encounters Encounter Location Date Provider Diagnosis [facility] [address] [place] [id number] 01/08/2024 Cindy Traylor PLAN OF TREATMENT No Information Progress Notes * Karina REYNOLDS MDOB:1975 ( 49 yo F)Acc No.[id number]:01/08/2024 Patient:??REYNOLDS Karina Brown Provider:??PILI Correa :1975?Age:48 Y?Sex:Fe male Date:01/08/2024 Address:[address] [place] [id number] Pcp:Sunil Wood MD Subjective: * Chief Complaints: * ?1. Ultrasound Guided S clerotherapy left lower extremity (medial). * Medical History:?? Objective: Assessment: Plan: * Treatment: * * Sign off status: Pending * Provider:??PILI Correa Date:? ?01/08/2024
--- OUTSIDE RECORDS SUMMARY | 2024-08-25 13:25 | XMS_ITS | Encounter Summary ---
Author Organization [facility] Address [address] [place] [address] Care Team Providers Care Traveling Buyer Name Role Phone Sunil Wood MD Primary Care Provider [phone] Zeb Mazariegos MD Unavailable [phone] Mikael Dunham CMA Unavailable [place] Unavailable Unavailabl e Source Comments Please be aware that You and/or your organization are solely responsible for the use, security, privacy, and any decisions made with any information you receive from [employer] Reason for Visit * Reason Comments Med Refill Encounter Details Date Type Department Care Team (Late st Contact Info) Description 02/28/2023 Refill [facility] Multispec[facility]ty at [place] [address] [facility] [address] [place] [address] [place] [id number] [place] [address] [address] [place] [address] Insomnia, unspecified type Social History Tobacco Use Types Packs/Day Years Used Date Smoking Tobacco: Every Day Cigarettes 0.3 33.3 Started: 1991 Smokeless Tobacco: Never Alcohol Use Standard Drinks/Week Comments Never 0 [...] Recorded Patient Health Questionnaire-2 Score 2 05/20/2022 [facility] Housing Answer Date Recorded Living Situation Not on file 12/28/2022 Housing Problems Not on file 12/28/2022 [facility] Safety Answer Date Recorded Threatened Not on file 12/28/2022 Insulted Not on file 12/28/2022 Physically Hurt Not on file 12/28/2022 Scream Not on file 12/28/2022 Sex and Gender Information Value Date Recorded Sex Assigned at Not on file Gender Identity Not on file Sexual Orientation Not on file documented as of this encounter Plan of Treatment Not on [...] documented as of this encounter Care Teams Traveling Buyer Relationship Specialty Start Date End Date Sunil Wood MD PCP - General Family Medicine 04/11/22 Zeb Mazariegos MD Surgeon Orthopaedic Surgery 02/03/23 Mikael Dunham, [facility] 02/03/23 Hetal Ho Dust Mop Maker Family Medicine 06/05/24 documented as of this encounter
[2024-08-25] MEDS: Lidocaine HCl 1 % MPF 5 ML VIAL 10 ML SUBCUT (13:42)
[2024-08-25 14:10] VITALS: BP 119/72; PULSE 65; RESP 16; TEMP 36.3; O2SAT 97
[2024-08-25 14:38] VITALS: BP 119/72; PULSE 65; RESP 16; TEMP 36.3; O2SAT 97
== END 2024-08-25 14:38 | disposition home or self-care (01) ==
PROVIDERS: Emergency Provider Emergency Medicine
DX: L02.214 Cutaneous abscess of groin (principal); I10 Essential (primary) hypertension
CPT/HCPCS: 10060; 99283; 99284; J2003

== ENCOUNTER 2024-10-02 10:24 | Emergency (ER) | payer MEDICAID, SELFPAY ==
[2024-10-02 10:58] VITALS: BP 111/74; PULSE 66; RESP 18; TEMP 36.5; O2SAT 98; BMI 26.7
--- NOTE | 2024-10-02 11:03 | ED_ITS ---
HPI - Nausea/Vomiting/Diarrhea General Chief complaint: Nausea/Vomiting/Diarrhea Stated complaint: Vomiting, Late Periods, Dizziness Time Seen by Provider: 10/02/24 12:29 Source: patient and associate relations specialist History of Present Illness ED Provider: HPI Narrative: 49-year-old woman presenting with nausea vomiting reports taking test at home x2 and it is showing that it is she is , she also states has not had menses in past 2 months denies abdominal pain, no fevers or chills denies diarrhea, no vaginal bleeding or discharge, no chest pain or shortness of breath reported. She uses tobacco and caffeine, denies drug use. Related Data Previous Rx's ?Medication ?Instructions ?Recorded cephalexin 500 mg capsule 500 mg PO QID #28 caps 08/25/24 doxycycline hyclate 100 mg capsule 100 mg PO BID #14 caps 08/25/24 famotidine 40 mg tablet 40 mg PO BEDTIME 30 days #30 tabs 10/02/24 sucralfate 1 gram tablet (Carafate) 1 g PO Q6H 7 days #28 tabs 10/02/24 Allergies Allergy/AdvReac Type Severity Reaction Status Date / Time Penicillins [PCN] Allergy Swelling Verified 10/02/24 10:59 Review of Systems 2 Review of Systems: Yes all other systems are reviewed and are negative PMFSH Social History Social History Substance Use Type: Marijuana Physical Exam 2 Vital Signs: Vital Signs: Last Vital Signs Temp 97.7 F 10/02/24 10:58 Pulse 66 10/02/24 10:58 Resp 18 10/02/24 10:58 BP 111/74 10/02/24 10:58 Pulse Ox 98 10/02/24 10:58 O2 Del Method Room Air 10/02/24 10:58 BMI result Body Mass Index 26.7 Const: Other: * Gen: ?Overall well-appearing patient * CV: RRR, no obvious murmurs appreciated * Resp: ?No wheezing rales rhonchi no stridor moving air well * Abd: ?Bowel sounds are present, no tenderness no rebound no rigidity * MSK: FROM, strength 5/5 all extremities * Skin: Warm, dry, intact, * Neuro: ?Alert and oriented x3, moving upper and lower extremities symmetrically, no obvious facial asymmetry noted Course Course Course Narrative: This is a Rapid Medical Exam performed in triage by Alma Myers PA-C. Full HPI, ROS and PE to be performed by primary ED provider. 49-year-old female presenting to the ED c/o N/V x3 days & reports shes 2wks late for menstruation. denies abd pain, fever, chills, vag bleeding, urianry sx PE: Emesis bag in hand, nontoxic appearing, ambulating with steady gait Plan: Labs, UA Medical Decision Making Medical Decision Making MDM Narrative: Some of the differential is listed below, patient overall is well-appearing with a completely benign abdominal exam, she did test negative for in the emergency department, urine will be sent for culture she has had no dysuria, I did not feel she requires further imaging such as ultrasound or CAT scan to evaluate for any cholecystitis or ovarian pathology or tubo-ovarian abscess, no risk factors for PID, with spent some time counseling on tobacco use and caffeine dietary changes we will prescribe medications for that see my discharge instructions Differential Diagnosis Differential Diagnoses: The differential diagnosis associated with the presentation includes Dysfunctional uterine bleeding, ectopic , Boerhaave syndrome, pancreatitis, hepatitis, cholecystitis, ACS, ovarian torsion, PID Admission/Observation Consideration of admission/observation: Escalation of care including admission/observation considered Lab Data MDM Lab Attestation statement: I reviewed the patient's lab results. 10/02/24 11:21 10/02/24 11:21 Labs: Lab Results 10/02/24 Range/Units 11:21 WBC 8.6 (4.8-10.8) X10*3/uL RBC 4.94 (4.20-5.50) X10*6/uL Hgb 15.0 (12.0-16.0) g/dl Hct 43.6 (37.0-47.0) % MCV 88.3 (80.0-98.0) fL MCH 30.4 (27.0-33.0) pg MCHC 34.4 (31.0-35.0) g/dl RDW 12.5 (11.0-16.0) % Plt Count 361 (160-400) X10*3/uL MPV 8.8 L (9.4-12.3) fL Immature Gran % (Auto) 0.3 (0.0-0.4) % Neut % (Auto) 56.2 (45-73) % Lymph % (Auto) 33.0 (20-40) % Boyd % (Auto) 8.4 (2-11) % Eos % (Auto) 1.6 (0-4) % Baso % (Auto) 0.5 (0-2) % Lymph # (Auto) 2.8 (1.2-4.9) X10*3/uL Boyd # (Auto) 0.7 (0.1-1.2) X10*3/uL Eos # (Auto) 0.1 (0.0-0.4) X10*3/uL Baso # (Auto) 0.0 (0.0-0.2) X10*3/uL Abs Immat Gran (auto) 0.03 (0.00-0.03) X10*3/uL Absolute Neuts (auto) 4.8 (2.0-8.3) x10*3/uL Absolute Nucleated RBC 0.000 (0.0-0.012) X10*3/uL Nucleated RBC % (auto) 0.0 (0.0-0.2) /100WBC Sodium 140 (135-145) mmol/L Potassium 4.1 (3.3-5.1) mmol/L Chloride 108 (96-108) mmol/L Carbon Dioxide 25 (22-29) mmol/L Anion Gap 11 L (12-20) BUN 12 (9-16) mg/dL Creatinine 0.70 (0.5-1.4) mg/dL Estim Creat Clear Calc 86.7 Estimated GFR > 60 Random Glucose 76 (60-115) mg/dL Calcium 9.4 (8.4-10.2) mg/dL Magnesium 2.1 (1.6-2.6) mg/dL Total Bilirubin 0.4 (0.0-1.0) mg/dL Direct Bilirubin 0.1 (0.0-0.5) mg/dL AST 20 (5-31) U/L ALT 12 (0-31) U/L Alkaline Phosphatase 81 (39-117) U/L Total Protein 8.1 H (6.5-8.0) g/dL Albumin 4.3 (3.5-5.0) g/dL Lipase 29 (8-78) U/L Urine Color Yellow Urine Appearance Clear Urine pH 5.5 (5.0-9.0) Ur Specific [place] 1.015 (1.005-1.025) Urine Protein Negative (Neg-Trace) mg/dL Urine Glucose (UA) Negative (Negative) mg/dL Urine Ketones Negative (Negative) mg/dL Urine Blood Negative (Negative) Urine Nitrite Negative (Negative) Ur Leukocyte Esterase Moderate (2+) H (Negative) Urine RBC 0-2 (0-2) /HPF Urine WBC 21-50 H (0-5) /HPF Ur Squamous Epith Cells 3-5 (0-2) /HPF Urine Bacteria 1+ (None Seen) Hyaline Casts 0-2 (0-2) /LPF Urine Test NEGATIVE (NEGATIVE) Discharge Plan Discharge Clinical Impression: Nausea & vomiting, Amenorrhea Patient Disposition: Home, Self-Care Additional Instructions: As discussed for your concerns for not having menses for the past 2 months I would like you to follow up with your accessibility lift technician, your physical examination today has been reassuring, the vital signs are stable, your blood work without anemia or dehydration, urine will be sent for culture, and your urine test also was tested for and you are not I suspect some nausea and vomiting with food that your experiencing is related to the fact that you were using tobacco and caffeine, I would like you to start today with drinking a cup of water, then for the next 1 week use Carafate and then have a meal and after that had a cup of coffee and I urge you to quit smoking tobacco Follow up with the PCP should you have worsening issues or concerns please do not hesitate to come back to the emergency department for re-evaluation Please see list of OGBYN providers below if you do not have one. OBGYN and Midwifery [facility] [address] [phone] [facility] [address] [facility] [phone] [facility] [address] [phone] OBGYN and Midwifery [facility] [address] [phone] [facility] [place] [phone] Prescriptions: New sucralfate [Carafate] 1 gram tablet 1 g PO Q6H 7 Days Qty: 28 0RF famotidine 40 mg tablet 40 mg PO BEDTIME 30 Days Qty: 30 0RF No Action cephalexin 500 mg capsule 500 mg PO QID Qty: 28 0RF doxycycline hyclate 100 mg capsule 100 mg PO BID Qty: 14 0RF Print Language: [place]
[2024-10-02 11:27] LABS: MANUAL DIFF FLAG NO
[2024-10-02 11:28] LABS: Basophils Percent Auto 0.5 % (0-2); Eosinophils Absolute Auto 0.1 X10*3/uL (0.0-0.4); Eosinophils Percent Auto 1.6 % (0-4); Hematocrit 43.6 % (37.0-47.0); Imm Gran Abs Auto 0.03 X10*3/uL (0.00-0.03); Imm Gran Pct Auto 0.3 % (0.0-0.4); Lymphocytes Absolute Auto 2.8 X10*3/uL (1.2-4.9); Mean Corpuscular HGB Conc 34.4 g/dl (31.0-35.0); Mean Corpuscular Hemoglobin 30.4 pg (27.0-33.0); Mean Corpuscular Volume 88.3 fL (80.0-98.0); Mean Platelet Volume 8.8 fL (9.4-12.3); Monocytes Absolute Auto 0.7 X10*3/uL (0.1-1.2); Monocytes Percent Auto 8.4 % (2-11); Neutrophils Absolute Auto 4.8 x10*3/uL (2.0-8.3); Neutrophils Percent Auto 56.2 % (45-73); Platelet Count 361 X10*3/uL (160-400); Red Blood Count 4.94 X10*6/uL (4.20-5.50); Red Cell Distribution Width 12.5 % (11.0-16.0); White Blood Count 8.6 X10*3/uL (4.8-10.8)
[2024-10-02 11:29] LABS: Appearance Urine Clear; Color Urine Yellow; Glucose Urine UA Negative (Negative); Leukocyte Esterase Urine Moderate (2+) (Negative); Nitrite Urine Negative (Negative); PH 5.5 (5.0-9.0); Specific Gravity - Urine 1.015 (1.005-1.025); UMIC TRIGGER UACC YES; Urine Blood Negative (Negative); Urine Ketones Negative (Negative); Urine Protein Negative (Neg-Trace)
[2024-10-02 11:31] LABS: Bacteria Urine 1+ (None Seen); Hyaline Casts Urine 0-2 /LPF (0-2); RBC Urine 0-2 /HPF (0-2); UACC Culture Trigger YES; WBC Urine 21-50 /HPF (0-5)
[2024-10-02 11:33] LABS: UPreg QC Valid YES; Urine Pregnancy NEGATIVE (NEGATIVE)
[2024-10-02 11:45] LABS: Alanine Aminotransferase 12 U/L (0-31); Albumin Level 4.3 g/dL (3.5-5.0); Alkaline Phosphatase 81 U/L (39-117); Anion Gap 11 (12-20); Aspartate Amino Transferase 20 U/L (5-31); Bilirubin Direct 0.1 mg/dL (0.0-0.5); Bilirubin Total 0.4 mg/dL (0.0-1.0); Blood Urea Nitrogen 12 mg/dL (9-16); Calcium 9.4 mg/dL (8.4-10.2); Carbon Dioxide 25 mmol/L (22-29); Chloride 108 mmol/L (96-108); Creatinine Clr Calc Pharmacy 86.7; Estimated Glomerular Filt Rate > 60; Glucose Random 76 mg/dL (60-115); Lipase 29 U/L (8-78); Magnesium 2.1 mg/dL (1.6-2.6); Potassium 4.1 mmol/L (3.3-5.1); Sodium 140 mmol/L (135-145); Total Protein 8.1 g/dL (6.5-8.0)
[2024-10-02 12:43] VITALS: BP 107/71; PULSE 60; RESP 16; O2SAT 96
--- OUTSIDE RECORDS SUMMARY | 2024-10-02 13:16 | XMS_ITS | Encounter Summary ---
Author Organization [facility] Address [address] [place] [address] Care Team Providers Care Openstack Cloud Consulting Architect Name Role Phone Sunil Wood MD Primary Care Provider [phone] Zeb Mazariegos MD Unavailable [phone] Mikael Dunham CMA Unavailable [place] Unavailable Unavailabl e Source Comments Please be aware that You and/or your organization are solely responsible for the use, security, privacy, and any decisions made with any information you receive from [employer] Reason for Visit * Reason Comments Med Refill Encounter Details Date Type Department Care Team (Late st Contact Info) Description 11/09/2022 Refill [facility] Multispecialty at [address] [address] [facility] [address] [place] [address] Sunil Wood [place] [id number] [place] [address] [address] [place] [address] Insomnia, unspecified type Social History Tobacco Use Types Packs/Day Years Used Date Smoking Tobacco: Every Day Cigarettes 0.3 30 Alcohol Use Standard Drinks/Week Comments Never 0 (1 standard drink = 0.6 oz pur e alcohol) PHQ-2 Answer Date Recorded Patient Health Questionnaire-2 Score 2 05/20/2022 Comments No Sex and Gender Information Value Date Recorded Sex Assigned at Not on file Legal Sex Female 4:25 PM EST Gender Identity Not on file Sexual Orientation [...] documented as of this encounter Care Teams Openstack Cloud Consulting Architect Relationship Specialty Start Date End Date Sunil Wood MD PCP - General Family Medicine 04/11/22 Zeb Mazariegos MD Surgeon Orthopaedic Surgery 02/03/23 Mikael Dunham FOOD MANAGEMENT AIDE 02/03/23 Hetal Ho Procurement Accountant Family Medicine 06/05/24 documented as of this encounter
--- OUTSIDE RECORDS SUMMARY | 2024-10-02 13:16 | XMS_ITS | Encounter Summary ---
Author Organization [facility] Address [address] [place] [address] Care Team Providers Care Plugman Name Role Phone Sunil Wood MD Primary Care Provider [phone] Zeb Mazariegos MD Unavailable [phone] Mikael Dunham CMA Unavailable Unava [place] Unavailable Unavailabl e Source Comments Please be aware that You and/or your organization are solely responsible for the use, security, privacy, and any decisions made with any information you receive from [employer] Reason for Visit * Reason Comments Med Refill Encounter Details Date Type Department Care Team (Late st Contact Info) Description 02/28/2023 Refill [facility] Multispecialty at [place] [address] [facility] [address] [place] [address] Sunil Wood MD [id number] [place] [address] [address] [place] [address] Insomnia, unspecified type Social History Tobacco Use Types Packs/Day Years Used Date Smoking Tobacco: Every Day Cigarettes 0.3 33.4 Started: 1991 Smokeless Tobacco: Never Alcohol Use [...] Recorded Patient Health Questionnaire-2 Score 2 05/20/2022 [facility] Housing Answer Date Recorded Living Situation Not on file 12/28/2022 Housing Problems Not on file 12/28/2022 [facility] Safety Answer Date Recorded Threatened Not on file 12/28/2022 Insulted Not on file 12/28/2022 Physically Hurt Not on file 12/28/2022 Scream Not on file 12/28/2022 Comments No Sex and Gender Information Value [...] documented as of this encounter Care Teams Plugman Relationship Specialty Start Date End Date Sunil Wood MD PCP - General Family Medicine 04/11/22 Zeb Mazariegos MD Surgeon Orthopaedic Surgery 02/03/23 Mikael Dunham, [employer] BURNER 02/03/23 Hetal Ho Manager Personal Family Medicine 06/05/24 documented as of this encounter
--- OUTSIDE RECORDS SUMMARY | 2024-10-02 13:16 | XMS_ITS | Clinical Summary ---
Author Organization [facility] Address [address] [place] [address] Care Team Providers Care It Intern Name Role Phone Sunil Wood MD Primary Care Provider [phone] AuldZeb MD Unavailable [phone] Mikael Dunham CMA Unavailable Unava [place] Unavailable Unavailabl e Allergies Active Allergy Reactions Criticality Noted Date Comments Penicillin G Anaphylaxis High 06/15/2022 Penicillins Rash Low 05/10/2022 Medications SUMAtriptan (Imitrex) 25 MG tabletIndications: Migraine without aura and without status migrainosus, not intractable Take 1 tablet (25 mg total) by mouth 1 (one) time if needed for migraine. May repeat dose once in 2 hours if no relief. Do not exceed 2 doses in 24 hours. 9 tablet 2 05/02/20 23 Active hydrOXYzine pamoate (Vistaril) 50 MG capsuleIndications :Insomnia, unspecified type Take 1 capsule (50 mg total) by mouth at night if needed (sleep). 30 capsule 2 08/02/19 24 Active escitalopram (Lexapro) 20 MG tabletIndications: Anxiety and depression Take 1 tablet (20 mg total) by mouth 1 (one) time each day. 30 tablet 5 08/02/19 24 Active budesonide-formote rol (Symbicort) 160-4.5 MCG/ACT inhalerIndications :Mild persistent asthma with exacerbation Inhale 2 puffs in the morning and 2 puffs in the evening. Rinse mouth with water after use to reduce aftertaste and incidence of candidiasis. Do not swallow.. 1 g 08/21/19 24 Active Blood Glucose Monitoring Suppl deviceIndications: Prediabetes 3 (three) times a day. Monitor blood sugar 1-3 times a day 1 each 08/21/19 24 Active Blood Glucose Monitoring Suppl kitIndications:Pre diabetes 3 (three) times a day. Monitor blood sugar 1-3 times a day 100 each 08/21/19 24 Active gabapentin (Neurontin) 300 MG capsuleIndications :Bilateral carpal tunnel syndrome Take 1 capsule (300 mg total) by mouth in the morning and 1 capsule (300 mg total) at noon and 1 capsule (300 mg total) before bedtime. 90 capsule 2 09/26/19 24 Active mirtazapine (Remeron Roxana-Tab) 15 MG disintegrating tabletIndications: Poor appetite,Fatigue, unspecified type PLACE 1 TABLET (15 MG TOTAL) UNDER THE TONGUE EVERY NIGHT. 90 tablet 1 10/11/19 24 Active ergocalciferol (Vitamin D2) 1.25 MG (94086 UT) capsuleIndications :Vitamin D deficiency Take 1 capsule (50,000 Units total) by mouth 1 (one) time per week. 12 capsule 11/24/19 24 Active fluticasone (Flonase) 50 MCG/ACT nasal sprayIndications:P ostnasal drip,Acute cough Administer 1 spray into each nostril 1 (one) time each day. Shake gently. Before first use, prime pump. After use, clean tip and replace cap. 16 g 11/24/19 24 025 Active benzonatate (Tessalon) 200 MG capsuleIndications :Postnasal drip,Acute cough Take 1 capsule (200 mg total) by mouth 3 (three) times a day if needed for cough. Do not crush or chew. 30 capsule 1 11/24/19 24 Active Additional Information Patient not taking.Reported on 05/03/2024 methylPREDNISolone (Medrol Dosepak) 4 MG tablets Follow schedule on package instructions 21 tablet 02/26/20 Active Additional Information Patient not taking.Reported on 05/03/2024 albuterol (Ventolin HFA) 108 (90 Base) MCG/ACT inhalerIndications :Asthma, unspecified asthma severity, unspecified whether complicated, unspecified whether persistent INHALE 2 PUFFS EVERY 6 HOURS IF NEEDED FOR WHEEZING. 18 g 5 03/11/20 24 Active atorvastatin (Lipitor) 80 MG tabletIndications: Hyperlipidemia, unspecified hyperlipidemia type Take 1 tablet (80 mg total) by mouth every night. 90 tablet 3 05/03/20 24 025 Active Nebulizer System All-In-One miscIndications:Mi ld intermittent asthma with acute exacerbation Use with nebulizer solution 1 each 05/22/19 25 Active pantoprazole (Protonix) 40 MG EC tabletIndications: Epigastric pain TAKE 1 TABLET BY MOUTH EVERY DAY BEFORE BREAKFAST DO NOT CRUSH CHEW OR SPLIT 90 tablet 1 06/06/19 25 Active ipratropium-albute rol (Duo-Neb) 0.5-2.5 mg/3 mL nebulizer solutionIndication s:Mild intermittent asthma with acute exacerbation TAKE 3 ML BY NEBULIZATION EVERY 6 HOURS 360 mL 08/18/19 25 Active Active Problems Problem Noted Date Diagnosed Date BMI 27.0-27.9,adult 03/12/2024 Intermittent palpitations 03/12/2024 Acute chest pain 08/17/2023 Chest pain 08/17/2023 Menorrhagia with regular cycle 08/22/2022 Depression 06/06/2022 Anxiety 06/06/2022 Acute posthemorrhagic anemia 06/06/2022 Duodenitis with bleeding 06/06/2022 third rigger (current) use of inhaled steroids 05/16 Other long-term (current) drug therapy 3 Asthma 06/06/2022 Gastritis, [...] Type Department Care Team Description 08/17/2024 Refill [facility] at [address] [place] [address] Sunil Wood MD Mild intermittent asthma with acute exacerbation from Last 3 Months Immunizations Immunization Administration Dates Next Due Influenza, Mdck, Trivalent, Pf 03/11/2024 Influenza, injectable, MDCK, preservative free, quadrivalent 05/03/2023 Family History Medical History Relation Name Comments Lung cancer Mother uterus ca Mother's Sister Relation Name Status Comments Mother Mother's Sister Alive Social History Tobacco Use Types Packs/Day Years Used Date Smoking Tobacco: Every Day Cigarettes 0.3 33.4 Started: 1991 Passive Smoke Exposure: Never Smokeless [...] Recorded Patient Health Questionnaire-2 Score 0 11/24/2023 [facility] Housing Answer Date Recorded Living Situation Not on file 12/28/2022 Housing Problems Not on file 12/28/2022 [facility] Safety Answer Date Recorded How often [...] scream or curse at you? 1 08/17/2023 Comments No Sex and Gender Information Value [...] AM EST Performed at: ??01 - [facility] [address] ??[id number] Roving Machine Operator: Harry Zuñiga MD, Phone: ??[phone] us Sunil Wood MD LAB BLOOD ORDERABLES Final Resul t [facility] ([facility]) ([facility]) * (ABNORMAL) Lipid [...] AM EST Performed at: ??01 - [facility] [address] ??[id number] Roving Machine Operator: Harry Zuñiga MD, Phone: ??[phone] Sunil Wood MD LAB BLOOD ORDERABLES Final Resul t Performing Organization Address City/[facility]/ZIP Co de Phone Number [facility] (RESULTS) (BKR) * (ABNORMAL) Comprehensive [...] AM EST Performed at: ??01 - [facility] [address] ??[id number] Roving Machine Operator: Harry Zuñiga MD, Phone: ??[phone] us Sunil Wood MD LAB BLOOD ORDERABLES Final Resul t [facility] (RESULTS) (BKR) * ThinPrep TIS PAP, HPB mRNA E6/E7 rfx HPV 16,18/45, CT/NG (08/22/2022 10:22 AM EDT) Clinical Information [facility] Comment:None given LMP [facility] Comment:None given Previous PAP [facility] Comment:None given Previous Biopsy [facility] Comment:None given Source [facility] Comment:Vagina, Cervix, Endo cervix Statement of Adequacy [facility] Comment: Satisfactory for evaluation. Endocervical/transformation zone component present. Age and/or menstrual status not provided Interpretation/Resu lt: [facility] Comment:Negative for intraep ithelial lesion or malignancy. Comment: [facility] [facility] Comment: This Pap test has been evaluated with computer assisted technology. Account Specialist Bryan glasgow [facility] Comment: DULCE RENTERIA(ASCP) CT screening location: [place] [address] Comment [facility] Comment: EXPLANATORY NOTE: The Pap is a [...] HPV mRNA E6/E7 Not Detected Not Detected [facility] Comment: Methodology: Jammer Hooker-Mediated Amplification This assay detects E6/E7 viral messenger RNA (mRNA) from 14 high-risk HPV types (16,18,31,33,35,39,45,51,52,56,58,59,66,68). Cervical sources are required for HPV testing. If a vaginal source from a patient who has had a total hysterectomy with removal of cervix was submitted, please contact the testing laboratory for alternative testing options. For additional information, please refer to http://[employer]/faq/PNM376r3 (This link if provided for information/ educational purposes only.) Chlamydia Trachomatis NOT DETECTED NOT DETECTED [facility] N gonorrhoeae rNA TMA, Urogenital NOT DETECTED NOT DETECTED [facility] Comment [facility] [employer] [facility] Comment: The analytical performance characteristics of this assay, when used to test SurePath(TM) specimens have been determined by [facility]. The modifications have not been cleared or approved by the FDA. This assay has been validated pursuant to the CLIA regulations and is used for clinical purposes. For additional information, please refer to https://[employer]/faq/ZRY058 (This link is being provided for information/ educational purposes only.) Liquid based cytology Cervix uteri structure / Unknown 08/22/2022 10:22 AM EDT 08/23/2022 6:09 AM EDT us No Rao CHIEF HUMAN RESOURCES OFFICER LAB CYTOLOGY ORDERABLE S Final Result [facility] [address] [place] [address] from Last 3 Months or Most Recently Relevant to Health Maintenance Insurance [facility] MEDICAID Advance Directives * Full Code (Latest Code Status on File) Date Activated Date Inactivated Comments 08/17/2023 10:04 PM 08/18/2023 10:15 PM Care Teams It Intern Relationship Specialty Start Date End Date Sunil Wood MD PCP - General Family Medicine 04/11/22 Zeb Mazariegos MD Surgeon Orthopaedic Surgery 02/03/23 Mikael Dunham CMA 02/03/23 Hetal Ho Exchange Architect Family Medicine 06/05/24
--- OUTSIDE RECORDS SUMMARY | 2024-10-02 13:16 | XMS_ITS ---
Author Organization [facility] Address [address] [place], [place] [address] Care Team Providers Care Rn Neonatal Icu Name Role Phone Sunil Wood MD Primary Care Provider Brooke Fields Unavailable [phone] REASON FOR VISIT Ultrasound Guided Sclerotherapy left lower extremity (medial) Encounters Encounter Location Date Provider Diagnosis [facility] [address] [place] [id number] 01/08/2024 Cindy Traylor PLAN OF TREATMENT No Information Progress Notes * Karina REYNOLDS MDOB:1975 ( 49 yo F)Acc No.[id number]:01/08/2024 Patient:??REYNOLDS Karina Brown Provider:??PILI Correa :1975?Age:48 Y?Sex:Fe male Date:01/08/2024 Address:[address] [place] [id number] Pcp:Sunil Wood MD Subjective: * Chief Complaints: * ?1. Ultrasound Guided S clerotherapy left lower extremity (medial). * Medical History:?? Objective: Assessment: Plan: * Treatment: * * Sign off status: Pending * Provider:??PILI Correa Date:? ?01/08/2024
--- OUTSIDE RECORDS SUMMARY | 2024-10-02 13:16 | XMS_ITS ---
Author Organization [facility] Address [address] [facility] [facility] [place], [place] [address] Care Team Providers Care Custom Feed Mill Operator Name Role Phone Sunil Wood MD Primary Care Provider Seymour Velasquez Unavailable [phone] REASON FOR VISIT *SCAN ONLY* U/S - [...] Unknown Encounters Encounter Location Date Provider Diagnosis [place] [facility] [address] [place], [place] [id number] 11/24/2023 Seymour Pa Varicose veins of bilateral lower extremities with [...] Karina REYNOLDS MDOB:1975 ( 48 yo F)Acc No.[id number]:11/24/2023 Patient:??Karina REYNOLDS M Provider:??Seymour Edward MD :1975?Age:48 Y?Sex:Fe male Date:11/24/2023 Address:[address] [place] [address], [id number] Pcp:Sunil Wood MD Subjective: * Chief Complaints: [...] ultrasound report for further details.? * Procedure Codes:??95592 ULTR ASOUND UNILATERAL * * Sign off status: Completed true * Provider:??Seymour Edward MD Date:?? 024
--- OUTSIDE RECORDS SUMMARY | 2024-10-02 13:16 | XMS_ITS | Patient Health Record ---
Author Organization [facility] Address [address] [facility] [address] [place], [place] [address] Care Team Providers Care Provider Education Specialist Name Role Phone Sunil Wood MD Primary Care Provider Brooke Fields Unavailable [phone] Seymour Pa Unavailable [phone] ALLERGIES Allergen (clinical drug ingredient) Drug/Non Drug [...] - , [facility] REASON FOR REFERRAL Reason Approved Referred Organization [facility] Referred Provider Seymour Pa Referred Address [address] [place], [place], Referred Provider Specialty Vascular and Interventional Radiology General Notes Laura Alston 09/13 04:23:39 PM >confirmed same pcp as previous--sent over referral requestAlecia Danielle 10/17/2023 10:12:23 AM >called pcp spoke with Yajaira confirmed referral request was received and is being worked.Alecia Danielle 10/18/2023 03:13:51 PM >received approved referral--scanned to chart Clinical Notes Sunil Escalera , PH , Referral Priority Routine Reason Approved - RFA RT GS V, RT SSV 10173 x2 LT GSV/SSV DO NOT MEET - PHYSICIAN INFORMED Diagnosis 1 Varicose veins of bi lateral lower extremities with other complications (I83.893) Diagnosis 2 Varicose veins of le ft lower extremity with complications (I83.892) Diagnosis 3 Varicose veins of ri ght lower extremity with other complications (I83.891) Referral Organization [facility] Referring Provider First Name Dietrich Referring Provider [facility] Referring Provider Speciality Vascular a tracie Interventional Radiology Referred Provider Seymour Pa Referred Provider Specialty Vascular and Interventional Radiology Procedure 1 ENDOVENOUS RF, 1ST V EIN (12823) General Notes Parish Franco 2023 02:44:39 PM > Simply DOMITILA submitted via Availity with clinicals. Pending - RFA RT GSV, RT SSV 82105 x2. , LT GSV/SSV DO NOT MEET - PHYSICIAN INFORMED, Parish Franco 10/31/2023 08:12:48 AM >Approved - RFA RT GSV, RT SSV 15105 x2 EFF 10/30/23 - 11/28/23 Auth letter scanned. Sent to [facility] to schedule sooner. Case #[id number] Referral Priority Routine Reason [place] [address] x1 Patient needs to sign The Simply appeal consent form sent to her . Diagnosis 1 Varicose veins of bi lateral lower extremities with other complications (I83.893) Diagnosis 2 Varicose veins of le ft lower extremity with other complications (I83.892) Diagnosis 3 Varicose veins of ri ght lower extremity with other complications (I83.891) Referral Organization [facility] Referring Provider First Name Dietrich Referring Provider Last Name [facility] Referring Provider Speciality Vascular a tracie Interventional Radiology Referred Provider Seymour Pa Referred Provider Specialty Vascular and Interventional Radiology Procedure 1 Injection of scleros ant, single incompetent vein (89238) General Notes Parish Franco 2023 10:31:27 AM > Simply DOMITILA submitted via availity with clinicals[place] [address] x1, Enma Zimmer 11/29/2023 11:19:32 AM > Per Simply thru Availity portal Cpt [address] UGFS Lt LE was not certified Auth# [id number] .. soo w/ Nurse reviewer @ [phone] iKesha W. advised denied 11/18/23, they allow 2 business days for a Peer to Peer. advised send ATTN: Mem[employer] Appeals Fax appeal to [phone] or send in appeal in writing ltr to [facility] [address] [address] [place] [address]. The original request had the scan dated 10/26/23 & clinicals were dated 10/27/23. sending to Hr Generalist . scanned denial into chart, Tiera Kimbrough 12/01/2023 01:49:01 PM >Appeal request submitted and scanned to the chart., Tiera Kimbrough 12/04/2023 12:43:54 PM >Case sent to [facility] , , Reason: Other, Subject: Karina Carlos, Description: The appeal request is pending and will take 30 days. Please reschedule the patient. Thank you, Tiera Kimbrough 01/03/2024 04:05:52 PM >Phone insurance with Per Sendy Tavares reference for the call [phone] the appeal was dismissed because the patient did not respond to the consent form that was sent to her. Appeal request submitted again. , Case sent to [facility] , , Reason: Auth Denied- Under dispute, Subject: Karina Carlos, Description: Appeal pending, the previous appeal was dismissed because the patient never responded to the appeal consent that was sent to her from the insurance. Another appeal request will be submitted and the patient will have to move out for another 30 days. Thank you, Tiera Kimbrough 01/09/2024 10:28:04 AM >I called [facility] and spoke with Misty Harding reference for the call [phone], per [place] in the appeals department a consent form was mailed to the provider and patient on 01/05/2024. Patient sign the form in order to have the appeal processed. If not, the appeal request will be denied., Enma Zimmer 01/25/2024 09:01:05 AM > [facility] Appeal ltr dated 01/04/24 , states rcvd appeal request 01/03/24, advised will mail response with our ruling 30 days from date of ltr 01/03/24. scanned copy to chart., Enma Zimmer 02/06/2024 01:43:10 PM >Snt a case to [facility] per CV cancelling any services for pt, Appeal will not be addressed until Patient& Dr signa an appeal form sent to them by [facility]. Clinical Notes Enma Zimmer 01/14 01:51:42 PM > Thank you for submitting your reschedule request via web form. , , Reason: Auth Denied- Upheld, Subject: Karina Carlos, Description: Please advise patient that no appts can be kept, appeal Pending because Patient didn't sign Appeal forms sent to her by her insurance, [employer]. Thank You Referral Priority Routine MEDICATIONS Medication [...] 20 MG TAKE 2 TABLETS BY [facility] EVERY DAY FOR 4 DAYS Oral for [...] Active confirmed Varicose veins of lower extremity (57299244) Problem Varicose veins of bilateral lower extremities with other complications (I83.893) Active confirmed [id number] Venous DUS BLE demonstrates reflux. No DVT, [...] confirmed Varicose veins of left lower limb ([id number] 6391797) Problem Varicose veins of left lower extremity with complications (I83.892) Active confirmed Varicose veins of lower extremity (18908769) VITAL SIGNS Heart Rate 88 /min 11/15/2023 [...] Encounter Location Date Provider Diagnosis [place] [address] [place] , [place] [id number] 10/10/2023 Brooke Kymberly [place] [address] [place] , [place] [id number] 10/19/2023 Seym[place] Pa [place] [address] [place] , [place] [id number] 10/20/2023 Brooke Laramie Varicose veins of bilateral lower extremities with other complications I83.893 ; Varicose veins of left lower extremity with complications I83.892 and Varicose veins of right lower extremity with other complications I83.891 [place] [address] [place] , [place] [id number] 11/15/2023 Seymour zzzBrown [place] [address] [place] , [place] [id number] 11/22/2023 Seymour zzzBrown [place] [address] [place] , [place] [id number] 01/08/2024 Brooke Traylor [place] [address] [place] , [place] [id number] 02/08/2024 Seymour zzzBrown [place] [address] [place] , [place] [id number] 10/26/2023 Seymour zzzBrown Varicose veins of bilateral lower extremities with other complications I83.893 [place] [address] [place] , [place] [id number] 10/27/2023 Brooke Traylor Varicose veins of bilateral lower extremities with other complications I83.893 [place] [address] [place] , [place] [id number] 11/09/2023 Seymour zzzBrown Varicose veins of bilateral lower extremities with other complications I83.893 ; Varicose veins of left lower extremity with other complications I83.892 and Varicose veins of right lower extremity with other complications I83.891 [place] [address] [place] , [place] [id number] 11/15/2023 Seymour zzzBrown Varicose veins of bilateral lower extremities with other complications I83.893 ; Varicose veins of left lower extremity with complications I83.892 and Varicose veins of right lower extremity with other complications I83.891 [place] [address] [place] , [place] [id number] 11/24/2023 Seymour zzzBrown Varicose veins of bilateral lower extremities with [...] extremities with other complications (ICD-10 - I83.893) 11/09/2023 Varicose veins of left lower extremity [...] extremity with other complications (ICD-10 - I83.891) 10/20/2023 Other XX minutes is the total time I spent in care and coordination of the medical needs and necessities of this patient, including detailed discussions of ongoing plan of care, excluding all separately billable procedures. 10/26/2023 Other A duplex ultrasound was ordered, [...] reviewed, and discussed the results with the juke box mechanic and patient. Right GSV is successfully ablated. Ultrasound done today shows no DVT in bilateral lower extremities. 11/24/2023 Other A duplex ultrasound was ordered, performed and interpreted. Refer to ultrasound report for further details. PLAN OF TREATMENT Pending Test Test Name Order Date .RFA Left GSV 07/29/2022 .Post Ablation LEV Insufficiency DUS Jose ateral 08/29/2022 .Varithena Left AASV (52319) 09/09/2022 .RFA Right GSV 11/09/2023 .RFA Right SSV 11/15/2023 .LEV Patency DUS Right 11/24/2023 Future Test Test Name Order Date .UGFS left lower extremity (medial) 10/13 .Auth DUS Left 10/30/2023 .Post Ablation LEV Insufficiency DUS Rig ht 11/15/2023 Insurance Providers Payer Name Payer Address Payer Phone Subscriber Number Group Number Insured Name Patient Relationship to Insured Coverage Start Date Coverage End Date [facility] [address] [address] [place] [address] [id number] [id number] Karina Carlos Self - patient is the insured 3 MEDICAL (GENERAL) HISTORY Medical History History ICD Code Arthritis diabetes high cholesterol asthma Surgical History Surgery Date(Month/Year) hernia repair
--- OUTSIDE RECORDS SUMMARY | 2024-10-02 13:16 | XMS_ITS ---
Author Organization [facility] Address [address] [facility] [place], [place] [address] Care Team Providers Care Shot Tube Machine Tender Name Role Phone Nina RAPP, Sunil Primary Care Provider Seymour Velasquez Unavailable [phone] REASON FOR VISIT Ultrasound Guided Sclerotherapy left lower extremity (medial) Encounters Encounter Location Date Provider Diagnosis [place] [facility] [place] [address] [place], [place] [id number] 02/08/2024 Natan Pa PLAN OF TREATMENT No Information Progress Notes * Karina REYNOLDS MDOB:1975 ( 49 yo F)Acc No.[id number]:02/08/2024 Patient:??Karina REYNOLDS Provider:??Seymour Edward MD :1975?Age:48 Y?Sex:Fe male Date:02/08/2024 [address] [place] [facility], [id number] Pcp:Sunil Wood MD Subjective: * Chief Complaints: * ?1. Ultrasound Guided S clerotherapy left lower extremity (medial). * Medical History:?? Objective: Assessment: Plan: * Treatment: * * Sign off status: Pending * Provider:??Seymour Edward MD Date:?? 024
[2024-10-02 13:37] VITALS: BP 117/74; PULSE 61; RESP 16; TEMP 36.7; O2SAT 96
--- NOTE | 2024-10-02 13:40 | PC.NURSE ---
DC paperwork reviewed with patient with bug trimmer video [place], [id number], patient answering questions before risk and insurance manager had a chance to risk and insurance manager. Patient refused PO meds pre D/C, stated she didn't think the doctor examined her well enough . DC instructions reviewed, all questions answered, patient verbalized understanding.
== END 2024-10-02 13:20 | disposition home or self-care (01) ==
PROVIDERS: Physician Assistant; Emergency Provider Emergency Medicine
DX: N91.0 Primary amenorrhea (principal); R11.2 Nausea with vomiting, unspecified; R19.7 Diarrhea, unspecified; Z79.899 Other long term (current) drug therapy
CPT/HCPCS: 36415; 80048; 80076; 81001; 81025; 83690; 83735; 85025; 87086; 99283; 99284